=== PATIENT | male | born 1940 | race Caucasian/White ===

== ENCOUNTER 2016-11-19 10:49 | Emergency (ER) | payer MEDICARE ==
[2016-11-19 11:14] VITALS: BP 154/50
[2016-11-19] MEDS ORDERED: IBUPROFEN 600 MG TABLET PO ONE (11:26)
--- NOTE | 2016-11-19 11:29 | ERNOTE ---
[id number] 6d patient Exam Limitations: no limitations Immunizations: IMMUNIZATION HX Immunizations Up to Date Yes History of Influenza Vaccine Yes Hx Pneumococcal Vaccination Yes Allergies/Adverse Reactions: Allergies No Known Allergies Allergy (Verified 11/19/16 11:15) Home Medications: HOME MEDICATIONS Aspirin [Aspirin Enteric Coated] 81 mg PO DAILY 07/31/14 [Last Taken Unknown] FLUoxetine HCL [Prozac] 20 mg PO DAILY 07/31/14 [Last Taken Unknown] Fenofibrate Nanocrystallized [Tricor] 145 mg PO DAILY 07/31/14 [Last Taken Unknown] Metoprolol Tartrate [Lopressor] 50 mg PO BID 07/31/14 [Last Taken Unknown] Nabumetone 750 mg PO DAILY 07/31/14 [Last Taken Unknown] Rosuvastatin Calcium [Crestor] 10 mg PO HS 07/31/14 [Last Taken Unknown] Sitagliptin Phosphate [Januvia] 100 mg PO DAILY 07/31/14 [Last Taken Unknown] Tamsulosin HCl [Flomax] 0.4 mg PO DAILY@1800 07/31/14 [Last Taken Unknown] carBAMazepine [Tegretol Chewable Tablets] 100 mg PO TID 07/31/14 [Last Taken Unknown] glipiZIDE [Glucotrol] 20 mg PO BIDAC 07/31/14 [Last Taken Unknown] metFORMIN HCL [Glucophage] 850 mg PO TID 07/31/14 [Last Taken Unknown] Oxybutynin Chloride [Ditropan Xl] 10 mg PO DAILY 06/16/16 [Last Taken Unknown] traMADol HCL [Ultram] 50 mg PO QID PRN 07/29/16 [Last Taken Unknown] HYDROcodone/ACETAMINOPHEN [[place] 5-325] 1 each PO Q6H PRN #20 tablet 07/30/16 [ Last Taken Unknown] - History of Present Illness Narrative: Patient woke up this morning with pain in his right flank and wondering whether he has another kidney stone. He has not pain when holding perfectly still, but it hurts with certain movement. He is not aware of any injury or unusual activity. Date (Duration): 11/19/16 Time (Timing): 08:00 Timing: Present: intermittent Onset Location: Present: right flank Activities at Onset: Present: none Prior Abdominal Problems: Present: similar symptoms Review of Systems - Review of Systems Constitutional: Absent: recent illness, fever ENT: Absent: nose congestion, sore throat Respiratory: Absent: shortness of breath, cough Cardiology: Absent: chest pain Gastrointestinal/Abdominal: Absent: nausea, vomiting, abdominal pain Genitourinary: Present: no symptoms reported. Absent: frequency, pain, dysuria Musculoskeletal: Absent: back pain Skin: Absent: rash Neurological: Absent: weakness, numbness - Patient's Past Medical History Patient History - Medical: Anxiety, Diabetes Type 2 Insulin Dependent, GERD, Kidney stone Patient History - Cardiac/Respiratory: Coronary Heart Disease, Hyperlipidemia Patient History - Cancer: No Hx of Cancer Patient History - Surgical Procedures: Cholecystectomy, Colonoscopy, Cardiac stent, Other - Family History Mother Family History - Medical: , No pertinent hx Family History - Cardiac/Respiratory: No pertinent hx Father Family History - Medical: History Unknown Family History - Cardiac/Respiratory: History Unknown Sister Family History - Medical: No pertinent hx Family History - Cardiac/Respiratory: Coronary Heart Disease - Social History Living Situations: assisted living Smoking Status: Never smoker Alcohol Use: none Drug Use: none Physical Exam - Physical Exam General Appearance: Present: wd/wn, alert, no apparent distress Respiratory: Present: no respiratory distress, normal breath sounds, lungs clear Cardiovascular/Chest: Present: regular rate, rhythm, no murmur Gastrointestinal/Abdominal: Present: nontender, nondistended, soft Back Exam: Present: no vertebral tenderness, muscle spasm, other - pain on palpation and with movement in right flank and right side below ribs Neurological Exam: Present: alert, oriented, normal mood/affect, no motor/ sensory deficits Skin Exam: Present: normal color, warm/dry ED Progress - Results and Orders Patient's Lab Results:: I have reviewed the patient's lab results. - Vital Signs Patient's Vital Signs:: I have reviewed the patient's vital signs. Vital Signs: Vital Signs 11/19/16 11:10 Temperature 36.1 C L Pulse Rate 70 Respiratory 16 Rate Blood Pressure 154/50 O2 Sat by Pulse 98 Oximetry - Progress/Reassessment Chief Complaint: Genitourinary Problem Progress Note-Subjective: 11/19/16 12:36 comfortable after ibuprofen, explained results history more compatible with musculoskeletal pain Departure Clinical Impression: Musculoskeletal pain - Departure Disposition: Home self-care Condition: Good Instructions: Musculoskeletal Pain Additional Instructions: take tylenol or ibuprofen as needed for the pain if it does not resolve over the next week or two follow up with your doctor for further testing
[2016-11-19] MEDS ORDERED: IBUPROFEN 600 MG TABLET ONE (11:34)
[2016-11-19 12:19] LABS: Urine Bilirubin Negative (NEGATIVE); Urine Blood Negative /ul (NEGATIVE); Urine Ketone Negative (NEGATIVE); Urine Nitrite Negative (NEGATIVE); Urine Protein 15 mg/dL (NEGATIVE); Urine Urobilinogen Normal (NORMAL); Urine pH 6.5 pH (5.0-7.0)
[2016-11-19 12:29] LABS: Urine Appearance Clear; Urine Color Yellow
[2016-11-19 12:30] LABS: Urine Bacteria None Seen; Urine RBC None Seen /hpf (0-5); Urine WBC TRACE /hpf (0-5)
== END 2016-11-19 12:46 | disposition home or self-care (01) ==
LOC: ER 10:49
DX: M79.1 Myalgia (principal); Z87.442 Personal history of urinary calculi; Z95.5 Presence of coronary angioplasty implant and graft

== ENCOUNTER 2017-08-05 10:48 | Day surgery (SDC) | payer MEDICARE ==
[~2017-08-05 10:48] MED LIST: RINGER'S SOLUTION,LACTATED 1,000 ML IV PRN; ceFAZolin SODIUM 2 GM in DEXTROSE 5 % IN WATER 50 ML IV PRN
[2017-08-05 17:12] VITALS: BP 157/81
== END 2017-08-05 10:49 | disposition home or self-care (01) ==
LOC: AMB 10:48
PROVIDERS: ATTEND Urology
PROC: 0V508ZZ Destruction of Prostate, Via Natural or Artificial Opening Endoscopic (ICD-10-PCS; principal; 2017-08-05 12:00)
DX: N40.1 Benign prostatic hyperplasia with lower urinary tract symptoms (principal); N13.8 Other obstructive and reflux uropathy; N35.9 Urethral stricture, unspecified; I10 Essential (primary) hypertension; E11.9 Type 2 diabetes mellitus without complications; I25.10 Atherosclerotic heart disease of native coronary artery without angina pectoris; E78.5 Hyperlipidemia, unspecified; K21.9 Gastro-esophageal reflux disease without esophagitis; F41.9 Anxiety disorder, unspecified; Z68.26 Body mass index [BMI] 26.0-26.9, adult